=== PATIENT | male | born 1950 | race Caucasian/White ===

== ENCOUNTER 2017-12-31 12:14 | Observation (INO) | payer MEDICAID, OTHER ==
[2017-12-31] MEDS ORDERED: ASPIRIN EC 325 MG TAB PO ONE (12:16)
[2017-12-31] MEDS ORDERED: DIAZEPAM 5 MG TAB PO ONE (12:16)
[2017-12-31] MEDS ORDERED: FAMOTIDINE 20 MG TAB PO ONE (12:16)
[2017-12-31] MEDS ORDERED: NS 1,000 ML IV ONE (12:16)
[2017-12-31] MEDS ORDERED: diphenhydrAMINE 25 MG CAP PO ONE (12:16)
[2017-12-31] MEDS ORDERED: MIDAZOLAM 2 MG/2 ML VIAL ONE ×4 (12:30→14:16)
[2017-12-31] MEDS ORDERED: IOPAMIDOL (ISOVUE-370) 150 ML BTL IV ONE ×2 (12:30→14:15)
[2017-12-31] MEDS ORDERED: fentaNYL 100 MCG/2 ML INJ ONE ×3 (12:30→14:16)
[2017-12-31] MEDS ORDERED: LIDOCAINE 1% 300 MG/30 ML SDV ONE (12:30)
[2017-12-31] MEDS ORDERED: CLOPIDOGREL BISULFATE 75 MG TAB ONE (12:37)
[2017-12-31 12:58] LABS: PLATELET COUNT 189 10^3/uL (150-400)
[2017-12-31] MEDS ORDERED: CLOPIDOGREL BISULFATE 75 MG TAB PO ONE (13:00)
--- NOTE | 2017-12-31 13:00 | PDHPUP ---
History & Physical Update H&P update statement: This history and physical update is based on an assessment of the patient which was completed after admission or registration (within 24 hours), but prior to the surgery/procedure. H&P update: H&P reviewed & patient examined, no change in patient's condition since H&P completed
--- NOTE | 2017-12-31 13:00 | PDPROPOC ---
Sedation Plan of Care Sedation Plan of Care: mental status noted, patient educated of risks, benefits , alternatives, patient can tolerate sedation ASA Classification: ASA 2 Planned drugs: fentanyl, midazolam Mallampati Score: Class 2 Mallampati Reference Image: Patient passed 3-3-2 rule?: Yes
[2017-12-31 13:12] LABS: INR 0.93 (0.83-1.16); PROTIME(PATIENT) 12.7 SEC (12.0-15.0)
[2017-12-31] MEDS ORDERED: BIVALIRUDIN 250 MG/5 ML VIAL IV ONE (13:30)
[2017-12-31] MEDS ORDERED: ATROPINE SULFATE 1 MG/10 ML SYR ONE (13:48)
[2017-12-31] MEDS ORDERED: EPTIFIBATIDE 200 MG/100 ML BOTTLE IV ONE ×2 (14:00→14:01)
[2017-12-31] MEDS ORDERED: NITROGLYCERIN 1,500 MCG/15 ML VIAL MISC ONE (14:04)
[2017-12-31] MEDS ORDERED: HYDROCODONE/APAP 5/325 TAB PO PRN (14:44)
[2017-12-31] MEDS ORDERED: ATROPINE SULFATE 1 MG/10 ML SYR IVP PRN (14:44)
[2017-12-31] MEDS ORDERED: TEMAZEPAM 15 MG CAP PO PRN (14:44)
[2017-12-31] MEDS ORDERED: ONDANSETRON 4 MG/2 ML VIAL IVP PRN (14:44)
[2017-12-31] MEDS ORDERED: LORazepam 2 MG/ML INJ IVP PRN (14:44)
[2017-12-31] MEDS ORDERED: NITROGLYCERIN 0.4 MG BTL SL PRN (14:44)
[2017-12-31] MEDS ORDERED: NS 1,000 ML IV SCH (14:45)
--- NOTE | 2017-12-31 15:08 | CPEKG ---
Heart Rate: 69 RR Interval: 870 P-R Interval: 176 QRSD Interval: 90 QT Interval: 404 QTC Interval: 433 P [place]: 74 QRS [place]: 68 T Wave [place]: 28 EKG Severity - BORDERLINE ECG - EKG Impression: SINUS RHYTHM EKG Impression: PROBABLE LEFT ATRIAL ABNORMALITY Electronically Signed By: Rose Padilla 31-Dec-2017 19:00:49
--- NOTE | 2017-12-31 16:04 | CPIP ---
[f rep st] INVASIVE CARDIAC PROCEDURE DATE OF PROCEDURE: 12/31/2017 INDICATION FOR PROCEDURE: Unstable angina. PROCEDURE: 1. Nonselective right groin sheathogram. 2. Bilateral coronary angiography. 3. Left heart catheterization. 4. Saphenous vein angiography presumably to the diagonal artery. 5. Saphenous vein angiography to OM-1 artery. 6. Left internal mammary artery angiography to the LAD. 7. Saphenous vein angiography presumably to RCA. 8. Percutaneous coronary intervention of mid distal RCA, utilizing 2.5 x 24 mm Synergy drug-eluting stent for severe in-stent thrombosis/restenosis. 9. Right groin closure with 6-[place] Angio-Seal. Briefly, this 67-year-old male with history of coronary artery disease status post bypass surgery, mu ltiple stent placements a year ago at an outside hospital. The patient presented to [facility] today for treadmill stress testing. The patient had significant chest pain during treadmill stress testing. Given these findings, patient was consented for left heart catheterizati on given his suspicious and clinical findings. After informed consent was obtained, he was brought t o [facility]. Patient was administered 600 mg of Plavix p.o. A 6-Croatian sheath was pl aced in the right common femoral artery. A JL4 catheter was advanced to the left coronary artery. I mages of the left coronary artery revealed 50% ostial left main disease. The circumflex appeared to be 100% occluded after its ostial takeoff. The LAD had ostial 60% to 70% disease. The LAD was diffu sely diseased and had competitive flow from a graft. Distally at the apical LAD, there appeared to b e significant disease at the distal apical segment of the vessel. There was no evidence of any diago nal artery coming off the LAD. At this time, the JL4 catheter was removed. The JR4 catheter was adv anced to the right coronary artery. Images of the right coronary artery revealed normal ostial RCA, 30% to 40% disease proximally in the RCA, and the mid RCA was 100% occluded with significant thrombus burden noted. The JR4 catheter was then pulled back to the 1st graft, which was a widely patent sap henous vein graft to a marginal 1 artery. Distally, the marginal artery bifurcated into 2 separate v essels, which were healthy and free of disease. After the images were obtained, the catheter was pul led back into what was presumably a graft to a diagonal artery, which was 100% occluded. This was th en placed into the 2nd potential graft, which was a 100% occluded graft to presumably the right coron aria artery. The JR4 catheter was then pulled back and exchanged out for a HUSAIN catheter. Angiograph y of the HUSAIN showed a thin but patent HUSAIN anastomosing into the mid LAD. Of note, the distal apica l LAD had significant 90% disease; however, this was at the distal apical segment, and the vessel's p ost diseased area was small and trifurcating. the HUSAIN catheter was pulled back. A pigta il catheter was then advanced to the left ventricle. LVEDP 16 mmHg. Left ventriculogram in the ARVIZU projection showed EF of 55%, with no wall motion abnormalities. No pullback into the aorta. INTERVENTION REPORT: At this time, patient was started on Angiomax bolus and drip. Utilizing a JR4 6-Croatian guide catheter with side holes, the right coronary artery was selectively engaged. A choice PT wire with a FineCross catheter was utilized to cross the area of concern in the mid RCA and place d into the RPLS. Once this was performed, balloon dilatation commenced with a 2.5 x 15 mm compliant balloon throughout the entire length of the stented areas of the RCA, which was extensively stented p rior. Multiple sequential inflations of 12-14 atmospheres were created throughout the area. After t his was performed, angiographic images were obtained, which then showed restored flow into the vessel with what appeared to be significant thrombus/plaque ulceration at the level of the mid distal RCA. At this time, we decided to proceed with stenting of this area with a 2.5 x 24 Synergy, and it was d eployed at 16 atmospheres. After deployment, angiographic images were obtained, which showed improve d patency of the stented area with no evidence of dissection or perforation. There was what appeared to be at the distal edge of the newly placed stent, possible thrombus versus dissection. Thus, we d ecided to try to place a 2.5 x 12 Synergy stent distal to this. However, the stent would not eren e the newly stented area. We decided at this point in time to start the patient on double bolus Inte grilin drip and instead post dilated the entire stented regions of the stent with a 3.0 x 15 mm ballo on. This was placed into the distal RCA, and multiple sequential inflations of 12-14 atmospheres occ urred from the distal RCA back into the mid RCA. After this was performed, angiogram was taken, whic h showed much improved patency of the stented regions with much better expansion rates noted. At thi s time the wire was removed. The guide catheter was removed, and angiographic images were obtained, which showed excellent patency of not only the RPDA and RPLS but the entire stented regions as well. Of note, there were lesions noted now in the distal RPDA and RPLS, all of which were small vessels b y this point, and thus no intervention was warranted on these vessels as they were extremely small an d distal in the vessel. Guide catheter was removed over an 0.035 wire. Right groin was closed with 6-Croatian and Angio-Seal. The patient tolerated the procedure well and no complications. IMPRESSION: 1. Successful percutaneous coronary intervention of 100% occluded mid right coronary artery stents w ith single 2.5 x 24 mm Synergy drug-eluting stent and multiple percutaneous transluminal angioplasty inflations throughout the stented regions. 2. Severe [place] coronary artery disease, namely in the form of left main left anterior descending d isease and 100% occluded circumflex disease. 3. Patent saphenous vein graft to marginal 1 artery. 4. Occluded saphenous vein graft presumably to diagonal artery. 5. Occluded saphenous vein graft presumably to right circumflex artery. 6. Patent left internal mammillary artery to left anterior descending with extreme distal apical lef t anterior descending disease, not amenable to any percutaneous coronary intervention. 7. Normal ejection fraction. PLAN: The patient will remain on aspirin and Plavix and bedrest for 3 hours time. If clinically sta ble to can be discharged in 24 hours. /[id number]/MODL
[2017-12-31] MEDS ORDERED: CALCIUM CARBONATE 500 MG CHEWABLE TAB PO PRN (16:55)
[2018-01-01 04:31] LABS: PLATELET COUNT 159 10^3/uL (150-400)
--- NOTE | 2018-01-01 07:18 | PDCARPN ---
Cardiology Progress Note Chief Complaint: CP Assessment/Plan: Assessment: CP RCA occlusion with PCI to RCA Plan: 01/01/18 07:16 Doing well no CP labs stable d/c home today with effient (if pt can afford), ASA, pravastatin f/u in 1 week Subjective: feels good Reviewed/Discussed With: multidisciplinary team Time Spent with Patient: greater than 25 minutes Time Spent with Patient: Greater than 25 minutes spent on this patients care, greater than 50% of time spent counseling, educating, and coordinating care regarding the above mentioned plan. Objective: Vital Signs (8 Hrs) Temp Pulse Resp BP Pulse Ox 01/01/18 03:28 36.7 C 52 L 13 131/86 H 94 01/01/18 01:25 41 L Intake/Output (24 Hrs) 12/31/17 01/01/18 01/02/18 05:59 05:59 05:59 Intake Total 870 Output Total 200 Balance 670 Intake: Oral (ml) 370 IV Intake (ml) 500 Output: Urine (ml) 200 Urinal 200 Other: Weight 111.13 kg Number of Voids Toilet 2 Result Diagrams: 01/01/18 03:24 01/01/18 03:24 - Physical Exam Constitutional: healthy appearing Eyes: PERRL Ears, Nose, Mouth, Throat: moist mucous membranes Cardiovascular: regular rate and rhythm Peripheral Pulses: 1+: femoral (R), femoral (L) Respiratory: clear to auscultate bilat Gastrointestinal: normoactive bowel sounds Genitourinary: no suprapubic tenderness Skin: no rashes Musculoskeletal: no muscular tenderness Neurologic: AAOx3 ICD10 Worksheet Patient Problems: Problems Problem Status Onset CAD (coronary artery disease) Acute - ICD10 Problem Qualifiers (1) CAD (coronary artery disease) Qualifiers: Coronary Disease-Associated Artery/Lesion type: [place] artery [place] vs. transplanted heart: [place] heart Associated angina: with unstable angina Qualified Code(s): I25.110 - Atherosclerotic heart disease of [place] coronary artery with unstable angina pectoris
[2018-01-01 07:36] VITALS: BP 143/99
--- NOTE | 2018-01-01 07:42 | GDS ---
[f rep st] DISCHARGE SUMMARY DISCHARGE DIAGNOSIS: Coronary artery disease. HOSPITAL COURSE: Briefly this is a 67-year-old male who was admitted electively on 12/31/2017, for l eft heart catheterization secondary to abnormal stress test and worsening chest pain. The patient wa s found to have 100% occluded [place] right coronary artery which had been extensively stented apparen tly 1 year ago. Of note, the patient had a saphenous vein graft to the right coronary artery which w as noted to be chronically occluded as well as saphenous vein graft to diagonal artery which was occl uded. He did have a patent HUSAIN to LAD as well as a patent saphenous vein graft to marginal one pedro ry. The patient underwent successful PCI of his right coronary artery with 1 Synergy drug-eluting st ent with multiple balloon PTAs of his right coronary artery. The etiology of the right coronary pedro ry occlusion appears to be either a thrombotic occlusion secondary to plaque rupture versus underexpa nded stents. At this time, the patient is feeling much better and was discharged home on Plavix, asp irin. We were discussing sending the patient home on Effient rather than Plavix given his presentati on with occluded stents. However, the patient is on Medicaid. He cannot afford the Effient at this time. I will also try to initiate low-dose pravastatin given the patient's elevated cholesterol helga campbell. He will follow up in the office in approximately 1 weeks' time. /[id number]/MODL
[2018-01-01] MEDS ORDERED: LISINOPRIL 5 MG TAB PO SCH (09:00)
[2018-01-01] MEDS ORDERED: CLOPIDOGREL BISULFATE 75 MG TAB PO SCH ×2 (09:00)
[2018-01-01] MEDS ORDERED: ASPIRIN EC 81 MG TAB PO SCH (09:00)
[2018-01-01] MEDS ORDERED: PRASUGREL HCL 10 MG TAB PO ONE (09:00)
[2018-01-01] MEDS ORDERED: PRAVASTATIN SODIUM 20 MG TAB PO SCH (09:00)
[2018-01-01] MEDS ORDERED: ASPIRIN EC 325 MG TAB PO SCH (09:00)
--- NOTE | 2018-01-01 09:01 | CPEKG ---
Heart Rate: 69 RR Interval: 870 P-R Interval: 168 QRSD Interval: 90 QT Interval: 412 QTC Interval: 442 P [place]: 13 QRS [place]: 71 T Wave [place]: 35 EKG Severity - OTHERWISE NORMAL ECG - EKG Impression: SINUS ARRHYTHMIA, RATE 61-83 Electronically Signed By: Rose Padilla 01-Jan-2018 21:01:21
--- NOTE | 2018-01-01 09:30 | ASDISCHSUM ---
Discharge Information Plan Status:Home with No Needs Medically Cleared to Leave:01/01/2018 Discharge Date:01/01/2018 CM D/C Disposition:Home, Routine, Self-Care ADT D/C Disposition:Home, Routine, Self-Care Projected Discharge Date:01/01/2018 Transportation at D/C:Family Discharge Delay Reason: Follow-Up Date:01/01/2018 Discharge Slot: Final Diagnosis: Placement Information Patient Contact Information Contact Name:KAYLIN Relationship: Address:[address] City:[place] Alternate Phone: [facility]Zip Code:[place] [address] Email: Financial Information Financial Class:Medicare Primary Plan Desc:MEDICARE OUTPATIENT Primary Plan Number:[id number] Secondary Plan Desc: Secondary Plan Number: Assessment Information LACE LACE Length of stay for Answers: Less than 1 day current admission Comorbidities - select Answers: Coronary Artery Disease all that apply Other Notes: HTN; HLD; Pre-diab etic # of Emergency department Answers: 0 visits in the last 6 months Social determinants Answers: Mental health diagnosis (anxiety, depression, pers onality disorders, etc.) Score: 6 Date Signed: 01/01/2018 09:28 AM Electronically Signed By:Anny Irwin RN Intervention Information
[2018-01-02] MEDS ORDERED: PRASUGREL HCL 10 MG TAB PO SCH (09:00)
== END 2018-01-01 10:19 | disposition home or self-care (01) ==
LOC: FCATH 12:14 → F2W 14:48
PROVIDERS: ADMIT Internal Medicine Cardiovascular Disease; ATTEND Internal Medicine Cardiovascular Disease
DX: I25.720 Atherosclerosis of autologous artery coronary artery bypass graft(s) with unstable angina pectoris (principal); T82.855A Stenosis of coronary artery stent, initial encounter; Z95.5 Presence of coronary angioplasty implant and graft; E78.5 Hyperlipidemia, unspecified
CPT/HCPCS: 93005; 93459; C1725; C1760; C1769; C1874; C1887; C9600; G0378; J0583; J1327; J1644; J2250; J3010; Q9967; J0461

== ENCOUNTER 2018-01-03 14:49 | Inpatient (IN) | payer OTHER ==
--- NOTE | 2018-01-03 15:04 | EDPHY ---
H & P Stated Complaint: Mid back pain today;stent placed Time Seen by Provider: 01/03/18 15:03 - Personal History Current Tetanus Diphtheria and Acellular Pertussis (TDAP): Yes Tetanus Vaccine Date: 9 YR - Medical/Surgical History Hx Asthma: No Hx Chronic Respiratory Disease: No Hx Diabetes: No Hx Cardiac Disease: Yes Hx Renal Disease: No Hx Cirrhosis: No Hx Alcoholism: No Hx HIV/AIDS: No Hx Splenectomy or Spleen Trauma: No Other PMH: CABG x4 2007, HTN, HLD, pre DM, GERD, contsipation, anxiety, CAD w/ stents x5 gout - Social History Smoking Status: Never smoked Constitutional: Initial Vital Signs Temperature (C) 36.6 C 01/03/18 14:50 Heart Rate 84 01/03/18 14:50 Respiratory Rate 16 01/03/18 14:50 Blood Pressure 175/107 H 01/03/18 14:50 O2 Sat (%) 96 01/03/18 14:50 O2 Delivery Mode Room Air Allergies/Adverse Reactions: No Known Allergies Allergy (Unverified 01/03/18 15:18) Home Medications: Medication Instructions Recorded Clopidogrel Bisulfate [Plavix (*)] 75 mg PO DAILY 12/31/17 Lisinopril [Zestril 5 mg (*)] 5 mg PO DAILY 12/31/17 Aspirin EC [Aspirin EC 81 mg (*)] 81 mg PO DAILY tab 01/01/18 Nitroglycerin [Nitrostat 0.4 mg 0.4 mg SL Q5M PRN #1 btl 01/01/18 (*)] Allopurinol [Allopurinol 100 MG 100 mg PO DAILY 01/03/18 (*)] Medical Decision Making ED Course/Re-evaluation: CHIEF COMPLAINT: Recent stent placement, recurrent symptoms. HISTORY OF PRESENT ILLNESS: This patient is a 67 y/o male with significant cardiac history s/p stent placement on , three days ago, presenting with recurrent symptoms to his evaluation on . History of numerous stent placements and quadruple bypass. Today, he woke with mid-scapular pain which is exactly the same symptoms as prior to his procedure 3 days ago which resulted in CONTACT MANAGER and drug- eluting stent to the RCA.His pain is exacerbated with movement, slightly alleviated with rest. He spoke with his financial services intern, Dr. Stewart, who recommended he present to the ED for further evaluation. He denies fever, shortness of breath, nausea, vomiting, or other associated symptoms. REVIEW OF SYSTEMS: A 10 point review of systems was performed and is negative with the exception of the elements mentioned in the history of present illness. PHYSICAL EXAM: HR, BP, O2 Sat, RR. Temp noted General Appearance: Alert, well hydrated, appropriate, and non-toxic appearing. Head: Atraumatic without scalp tenderness or obvious injury Eyes: Pupils equal, round, reactive to light and accommodation, EOMI, no trauma , no injection. Ears: Clear bilaterally, no perforation, normal landmarks Nose: Atraumatic, no rhinorrhea, clear. Throat: There is no erythema or exudates, no lesions, normal tonsils, mucus membranes moist. Neck: Supple, 2+ carotid upstroke, nontender, no lymphadenopathy. Respiratory: No retractions, no distress, no wheezes, and no accessory muscle use. Lungs are clear to auscultation bilaterally. Cardiovascular: Regular rate and rhythm, no murmurs, rubs, or gallops. Bilateral carotid, radial, dorsalis pedis, and posterior tibial pulses intact. Good capillary refill all extremities. Gastrointestinal: Abdomen is soft, nontender, non-distended, no masses, no rebound, no guarding, no peritoneal signs. Musculoskeletal: Normal active ROM of all extremities, atraumatic. Neurological: Alert, appropriate, and interactive. The patient has normal DTRs and non-focal cranial nerves, motor, sensory, and cerebellar exam. Skin: No rashes, good turgor, no nodules on palpation. Past medical history: CABG x4 2007, Hypertension, Hyperlipidemia, Pre-Diabetes Mellitus, GERD, Constipation, Anxiety, CAD s/p stents x5, Gout. Past surgical history: CAD s/p CABG and multiple stent placements. Family history: Noncontributory. Social history: Lives in [place]. . Employed. Does not abuse tobacco, drugs, or alcohol. DIAGNOSTICS/PROCEDURES/CRITICAL CARE TIME: The 12 lead EKG was interpreted by myself. Sinus rhythm. See hard copy and/or "tracemaster" electronic copy for interpretation. Critical care time spent by me, Dr. Dunaway, exclusively with this patient was 30 minutes, exclusive of PA time and exclusive of procedures. The organ system at risk was cardiac and I consulted with cardiology and medicine, performed laboratory studies, reviewed EKGs, and reviewed past medical records including procedure notes to prevent worsening of the patients condition. DIFFERENTIAL DIAGNOSIS: The differential diagnosis for the patient's chest pain included but was not limited to myocardial ischemia, pulmonary embolus, chest wall pain, pleural inflammation, and pulmonary infectious causes. MEDICAL DECISION MAKIN67 y/o male with significant cardiac history s/p stent placement on presents with mid-scapular pain which is exactly the same symptoms as prior to his procedure 3 days ago. Plan for EKG, labs including CBC, chemistries, troponin, coag, BNP. 15:[address] depression in V4/V5. Of note, here were no acute EKG changes at the time of the patient's symptoms and subsequent catheterization on 12/31. 15:20 POC Troponin elevated at 0.23. 15:[address] White, financial services intern. Plan to consult with pulp mill supervisor application systems administrator. 15:[address] Linda, pulp mill supervisor. He performed the patient's stenting on 12/31/17. He does not want to take the patient back to the laboratory development technician at this time. Dr. Linda recommends admission and medical management. Plan to consult with hospitalist service. 15:[address] White. He is aware of the plan for medical management at this time. 15:[address] Jacobson, hospitalist. He accepts admission to [facility] for acute coronary syndrome. He will proceed with medical management including heparin drip, pain relief with nitro or other medications as needed. - Data Points Laboratory Results: Laboratory Results 01/03/18 15:08 01/03/18 15:08 01/03/18 01/03/18 01/03/18 15:08 15: 15:08 WBC 8.43 10^3/uL 10^3/uL (3.80-9.50) RBC 6.33 10^6/uL 10^6/uL (4.40-6.38) Hgb 19.5 g/dL H g/dL (13.7-17.5) Hct 57.0 % H % (40.0-51.0) MCV 90.0 fL fL (81.5-99.8) MCH 30.8 pg pg (27.9-34.1) MCHC 34.2 g/dL g/dL (32.4-36.7) RDW 13.7 % % (11.5-15.2) Plt Count 188 10^3/uL 10^3/uL (150-400) MPV 11.2 fL fL (8.7-11.7) Neut % (Auto) 60.4 % % (39.3-74.2) Lymph % (Auto) 28.1 % % (15.0-45.0) [place] % (Auto) 8.9 % % (4.5-13.0) Eos % (Auto) 1.7 % % (0.6-7.6) Baso % (Auto) 0.7 % % (0.3-1.7) Nucleat RBC Rel Count 0.0 % % (0.0-0.2) Absolute Neuts (auto) 5.09 10^3/uL 10^3/uL (1.70-6.50) Absolute Lymphs (auto) 2.37 10^3/uL 10^3/uL (1.00-3.00) Absolute Monos (auto) 0.75 10^3/uL 10^3/uL (0.30-0.80) Absolute Eos (auto) 0.14 10^3/uL 10^3/uL (0.03-0.40) Absolute Basos (auto) 0.06 10^3/uL 10^3/uL (0.02-0.10) Absolute Nucleated RBC 0.00 10^3/uL 10^3/uL (0-0.01) Immature Gran % 0.2 % % (0.0-1.1) Immature Gran # 0.02 10^3/uL 10^3/uL (0.00-0.10) PT 12.6 SEC SEC (12.0-15.0) INR 0.92 (0.83-1.16) APTT 26.3 SEC SEC (23.0-38.0) Sodium 143 mEq/L mEq/L (135-145) Potassium 4.3 mEq/L mEq/L (3.3-5.0) Chloride 105 mEq/L mEq/L (97-110) Carbon Dioxide 24 mEq/l mEq/l (22-31) Anion Gap 14 mEq/L mEq/L (8-16) BUN 16 mg/dL mg/dL (7-23) Creatinine 1.0 mg/dL mg/dL (0.7-1.3) Estimated GFR > 60 Glucose 102 mg/dL H mg/dL (70-100) Calcium 9.2 mg/dL mg/dL (8.5-10.4) POC Troponin I Troponin I NT-Pro-B Natriuret Pep 163 pg/mL H pg/mL (0-125) 01/03/18 01/03/18 15:08 15:07 WBC RBC Hgb Hct MCV MCH MCHC RDW Plt Count MPV Neut % (Auto) Lymph % (Auto) [place] % (Auto) Eos % (Auto) Baso % (Auto) Nucleat RBC Rel Count Absolute Neuts (auto) Absolute Lymphs (auto) Absolute Monos (auto) Absolute Eos (auto) Absolute Basos (auto) Absolute Nucleated RBC Immature Gran % Immature Gran # PT INR APTT Sodium Potassium Chloride Carbon Dioxide Anion Gap BUN Creatinine Estimated GFR Glucose Calcium POC Troponin I 0.23 ng/mL H ng/mL (0.00-0.08) Troponin I 0.261 ng/mL H ng/mL (0.000-0.034) NT-Pro-B Natriuret Pep Medications Given: Heparin Sodium (Porcine) (Heparin Injection) 0 unit IVP PRN PRN; Protocol PRN Reason: Boluses required by protcol Stop: 07/02/18 15:57 Last Admin: 01/03/18 17:02 Dose: 4,000 units Heparin Sodium (Porcine) (Heparin 50 Units/Ml (Premix)) 500 mls @ 0 mls/hr IV CONT SHEA; Per Protocol PRN Reason: Protocol Stop: 07/02/18 15:59 Last Admin: 01/03/18 17:03 Dose: 500 mls Metoprolol Tartrate (Lopressor) 12.5 mg PO BID [facility] Stop: 07/02/18 17:14 Last Admin: 01/03/18 18:14 Dose: 12.5 mg Pravastatin Sodium (Pravachol) 80 mg PO DAILY [facility] Stop: 07/02/18 16:59 Last Admin: 01/03/18 18:14 Dose: 80 mg Discontinued Medications Nitroglycerin/Dextrose (Nitroglycerin 200 Mcg/Ml (Premix)) 250 mls @ 0 mls/hr IV CONT ONE; Titrate PRN Reason: Protocol Stop: 01/03/18 15:36 Last Admin: 01/03/18 15:53 Dose: 250 mls Lorazepam (Ativan Injection) 1 mg IVP ONCE ONE Stop: 01/03/18 16:31 Last Admin: 01/03/18 16:36 Dose: 1 mg Point of Care Test Results: Chemistry 01/03/18 15:07 POC Troponin I 0.23 ng/mL H ng/mL (0.00-0.08) Departure - Departure Disposition: [facility] Inpatient Acute Clinical Impression: Acute coronary syndrome Condition: Fair Report Scribed for: Marco Antonio Dunaway Report Scribed by: Roma Ho Date of Report: 01/03/18 Time of Report: 15:33
--- NOTE | 2018-01-03 15:05 | CPEKG ---
Heart Rate: 82 RR Interval: 732 P-R Interval: 148 QRSD Interval: 94 QT Interval: 372 QTC Interval: 435 P [place]: 73 QRS [place]: 67 T Wave [place]: -54 EKG Severity - ABNORMAL ECG - EKG Impression: SINUS RHYTHM EKG Impression: LEFT ATRIAL ABNORMALITY EKG Impression: BORDERLINE T ABNORMALITIES, INFERIOR LEADS Electronically Signed By: Marco Antonio Dunaway 03-Jan-2018 18:46:50
[2018-01-03] MEDS ORDERED: NITROGLYCERIN/DEXTROSE 250 ML IV ONE (15:35)
[2018-01-03 15:47] LABS: PLATELET COUNT 188 10^3/uL (150-400)
[2018-01-03] MEDS ORDERED: ONDANSETRON DISINTEGRATING 4 MG TAB PO PRN (15:55)
[2018-01-03] MEDS ORDERED: ACETAMINOPHEN 325 MG TAB PO PRN (15:55)
[2018-01-03] MEDS ORDERED: ONDANSETRON 4 MG/2 ML VIAL IVP PRN (15:55)
[2018-01-03] MEDS ORDERED: HEPARIN 10,000 UNIT/10 ML MDV (1,000 UNIT/ML) IVP PRN (15:58)
[2018-01-03] MEDS ORDERED: NS 1,000 ML IV SCH (16:00)
[2018-01-03] MEDS ORDERED: HEPARIN/DEXTROSE 500 ML IV SCH (16:00)
[2018-01-03] MEDS ORDERED: NITROGLYCERIN/DEXTROSE 250 ML IV SCH (16:00)
[2018-01-03] MEDS ORDERED: HEPARIN/DEXTROSE 25,000 UNIT/500 ML BAG ONE (16:27)
[2018-01-03] MEDS ORDERED: HEPARIN 10,000 UNIT/10 ML MDV (1,000 UNIT/ML) ONE (16:27)
[2018-01-03] MEDS ORDERED: LORazepam 2 MG/ML INJ IVP ONE (16:30)
[2018-01-03 16:34] LABS: INR 0.92 (0.83-1.16); PROTIME(PATIENT) 12.6 SEC (12.0-15.0)
[2018-01-03] MEDS ORDERED: LORazepam 2 MG/ML INJ ONE (16:34)
--- NOTE | 2018-01-03 17:03 | PDGENHP ---
History and Physical - Chief Complaint Acute back pain - History of Present Illness Primary care provider: Martha Beltran at [facility] Primary composition molder: Dr. Terry Patricio HPI: 67-year-old male presents with acute back pain located in the mid scapular area characterized as a burning sensation, similar to the back pain he had been experiencing prior to his most recent catheterization which had resulted in DESIGNER WRITER and drug-eluting stent to the RCA. The patient reports that the pain began on the morning of presentation and has been persistent thereafter. It seems to be exacerbated with movement, slightly alleviated with rest as well as nitroglycerin drip initiated in the emergency department. The patient has not been taking any sublingual nitroglycerin at home. He has not received the statin ordered at his most recent discharge. He has been taking his aspirin and Plavix as prescribed. He otherwise denies any fevers chills or shortness of breath. He feels very anxious because the discomfort is very similar to what he has previously experienced and been identified as anginal. History Information - Allergies/Home Medication List Allergies/Adverse Reactions: No Known Allergies Allergy (Unverified 01/03/18 15:18) Home Medications: Clopidogrel Bisulfate [Plavix (*)] 75 mg PO DAILY 12/31/17 [Last Taken 01/03/18 AM] Lisinopril [Zestril 5 mg (*)] 5 mg PO DAILY 12/31/17 [Last Taken 01/03/18 AM] Allopurinol [Allopurinol 100 MG (*)] 100 mg PO DAILY 01/03/18 [Last Taken Unknown] I have personally reviewed and updated: family history, medical history, social history, surgical history - Past Medical History coronary artery disease (Multi vessel with previous CABG and cardiac stents, most recently DESIGNER WRITER as well as drug-eluting stent to a 100% occluded RCA), hypertension, hyperlipidemia Additional medical history: Anxiety. Gout. Erectile dysfunction - Surgical History Reports: coronary bypass surgery, coronary stent - Family History Additional family history: Mother with myocardial infarction at age 61, sibling with myocardial infarction at age 59, maternal grandfather with myocardial infarction at age 63 - Social History Smoking Status: Never smoked Alcohol Use: Occasionally (Never experienced alcohol withdrawal, did not consume alcohol last night) Drug Use: None Additional social history: Patient reports he is independent in his ADLs Review of Systems Review of Systems: ROS: 10pt was reviewed & negative except for what was stated in HPI & below Cardiac: Reports: chest pain (And back pain) Physical Exam Physical Exam: Temp Pulse Resp BP Pulse Ox 36.6 C 84 16 137/65 H 92 01/03/18 14:50 01/03/18 16:38 01/03/18 16:38 01/03/18 16:38 01/03/18 16:38 O2 (L/minute) 1 Constitutional: no apparent distress, appears nourished, obese, uncomfortable Eyes: PERRL, anicteric sclera, EOMI Ears, Nose, Mouth, Throat: moist mucous membranes, hearing normal, ears appear normal, no oral mucosal ulcers Cardiovascular: regular rate and rhythym, no murmur, rub, or gallop, No edema Respiratory: no respiratory distress, no rales or rhonchi, clear to auscultation Gastrointestinal: normoactive bowel sounds, soft, non-tender abdomen, no palpable masses Skin: warm, other (No ecchymoses on back), No abrasion, No rash Musculoskeletal: other (Full range of motion bilateral shoulders without any pain elicited, full range of motion of neck without any pain, no tenderness over the cervical thoracic or lumbar vertebral bodies, no tenderness over the anterior pectoralis muscles, no tenderness in the bilateral sub a.c.) Neurologic: AAOx3, sensation intact bilaterally, No weakness Psychiatric: not encephalopathic, thought process linear, anxious, No agitated Lab Data & Imaging Review 01/03/18 15:08 01/03/18 15:08 WBC 8.43 10^3/uL (3.80-9.50) 01/03/18 15:08 RBC 6.33 10^6/uL (4.40-6.38) 01/03/18 15:08 Hgb 19.5 g/dL (13.7-17.5) H 01/03/18 15:08 Hct 57.0 % (40.0-51.0) H 01/03/18 15:08 MCV 90.0 fL (81.5-99.8) 01/03/18 15:08 MCH 30.8 pg (27.9-34.1) 01/03/18 15:08 MCHC 34.2 g/dL (32.4-36.7) 01/03/18 15:08 RDW 13.7 % (11.5-15.2) 01/03/18 15:08 Plt Count 188 10^3/uL (150-400) 01/03/18 15:08 MPV 11.2 fL (8.7-11.7) 01/03/18 15:08 Neut % (Auto) 60.4 % (39.3-74.2) 01/03/18 15:08 Lymph % (Auto) 28.1 % (15.0-45.0) 01/03/18 15:08 [place] % (Auto) 8.9 % (4.5-13.0) 01/03/18 15:08 Eos % (Auto) 1.7 % (0.6-7.6) 01/03/18 15:08 Baso % (Auto) 0.7 % (0.3-1.7) 01/03/18 15:08 Nucleat RBC Rel Count 0.0 % (0.0-0.2) 01/03/18 15:08 Absolute Neuts (auto) 5.09 10^3/uL (1.70-6.50) 01/03/18 15:08 Absolute Lymphs (auto) 2.37 10^3/uL (1.00-3.00) 01/03/18 15:08 Absolute Monos (auto) 0.75 10^3/uL (0.30-0.80) 01/03/18 15:08 Absolute Eos (auto) 0.14 10^3/uL (0.03-0.40) 01/03/18 15:08 Absolute Basos (auto) 0.06 10^3/uL (0.02-0.10) 01/03/18 15:08 Absolute Nucleated RBC 0.00 10^3/uL (0-0.01) 01/03/18 15:08 Immature Gran % 0.2 % (0.0-1.1) 01/03/18 15:08 Immature Gran # 0.02 10^3/uL (0.00-0.10) 01/03/18 15:08 PT 12.6 SEC (12.0-15.0) 01/03/18 15:08 INR 0.92 (0.83-1.16) 01/03/18 15:08 APTT 114.6 SEC (23.0-38.0) H 01/03/18 15:08 Sodium 143 mEq/L (135-145) 01/03/18 15:08 Potassium 4.3 mEq/L (3.3-5.0) 01/03/18 15:08 Chloride 105 mEq/L (97-110) 01/03/18 15:08 Carbon Dioxide 24 mEq/l (22-31) 01/03/18 15:08 Anion Gap 14 mEq/L (8-16) 01/03/18 15:08 BUN 16 mg/dL (7-23) 01/03/18 15:08 Creatinine 1.0 mg/dL (0.7-1.3) 01/03/18 15:08 Estimated GFR > 60 01/03/18 15:08 Glucose 102 mg/dL (70-100) H 01/03/18 15:08 Calcium 9.2 mg/dL (8.5-10.4) 01/03/18 15:08 POC Troponin I 0.23 ng/mL (0.00-0.08) H 01/03/18 15:07 Troponin I 0.261 ng/mL (0.000-0.034) H 01/03/18 15:08 NT-Pro-B Natriuret Pep 163 pg/mL (0-125) H 01/03/18 15:08 Visualized and Interpreted EKG results: Yes EKG Interpretation: Positive for: other (Normal sinus mechanism, less than [address] depressions in leads V4 and V5, mild ST elevations when EKG is flipped) Assessment & Plan Assessment: 67-year-old male presents with acute back/chest pain concerning for acute coronary syndrome Plan: 1. Chest/back pain. Acute, concerning for acute coronary syndrome given that his troponin level 0.2, his symptoms are insidiously similar to his previous anginal equivalent, and his EKG demonstrates ST depressions laterally which do appear to be ST elevations when his EKG is flipped, and these are visible changes from his EKG on 01/01/2018 -discussed with Dr. Marco Antonio Dunaway, we both agree that the risk of this being acute coronary syndrome is very present, and we would be remiss not to treat as such with a nitroglycerin drip and heparinization -Dr. Dunaway has discussed with both doctors Cindy and Maddi, and they do not recommend cardiac catheterization at this time, they recommend medical management, they will consult the patient in the a.m. -I will monitor on telemetry, cycle his cardiac enzymes, and if his troponin level is rising or his symptoms become unrelenting, I will reconsult with these providers for catheterization overnight -will provide him with statin which was not filled yet from his most recent hospitalization -continue aspirin, Plavix, beta-radha -titrate nitro drip to chest discomfort, it IV morphine for breakthrough 2. Hypertension. Continue ASHLEY-inhibitor, beta-radha added 3. Anxiety. Although the patient may have an anxiety component given his history of very real medical disease, I do not get the sense that the patient's current presentation is completely attributable to anxiety Diet. Cardiac, NPO in a.m. For possible catheterization tomorrow Prophylaxis. High risk patient, heparin drip Code. Full Disposition. Anticipated discharge uncertain this time, anticipated length stay is greater than 2 midnights for reasonable medical necessity including suspected acute coronary syndrome in a high risk patient with known coronary artery disease, recent cardiac stenting, previous CABG, elevated troponin level. 35 min of critical care time spent with this patient, at bedside, coordinating care with Dr. Dunaway, specifically addressing what we believe to be acute coronary syndrome requiring heparin drip, nitro drip, step-down unit level of care, with the patient being high risk for worsening morbidity and/or mortality and being critically ill.
[2018-01-03] MEDS ORDERED: LORazepam 0.5 MG TAB PO PRN (18:00)
[2018-01-03] MEDS: PRAVASTATIN SODIUM 40 MG TAB PO SCH (18:14)
[2018-01-03] MEDS: METOPROLOL TARTRATE 25 MG TAB PO SCH ×2 (18:14→20:36)
[2018-01-03 23:35] LABS: INR 1.03 (0.83-1.16); PROTIME(PATIENT) 13.7 SEC (12.0-15.0)
[2018-01-04 04:48] LABS: PLATELET COUNT 156 10^3/uL (150-400)
[2018-01-04] MEDS ORDERED: DIAZEPAM 5 MG TAB PO ONE (06:43)
[2018-01-04] MEDS ORDERED: diphenhydrAMINE 25 MG CAP PO ONE ×2 (06:43→08:39)
[2018-01-04] MEDS ORDERED: TEMAZEPAM 15 MG CAP PO PRN (06:43)
[2018-01-04] MEDS ORDERED: FAMOTIDINE 20 MG TAB PO ONE (06:43)
--- NOTE | 2018-01-04 07:18 | GCON ---
[f rep st] CONSULTATION CARDIOLOGY CONSULT DATE OF CONSULTATION: 01/04/2018 CHIEF COMPLAINT: Chest pain, back pain. HISTORY OF PRESENT ILLNESS: This is a 67-year-old male who was recently discharged from [facility], who was found to have 100% occluded [place] right coronary artery secondary to stent thr ombosis. The patient underwent PTCA and stent placement to his mid RCA with resolution of flow into the RCA. Of note, the patient had occluded saphenous vein graft to RCA as well as saphenous vein gra ft to diagonal artery. He did have a patent HUSAIN to LAD and a patent saphenous vein graft to a gerry nal 1 artery. Apparently yesterday morning, patient woke up and had sudden onset of back pain. He d ecided to come to the emergency room for further evaluation where he was found to have slight a tropo brandon elevation of 0.2. His ECG did not show any significant changes. There may have been some subtle lateral depression, however, his blood pressure was 180/100. With his blood pressure being controll ed, the STs have normalized. Current troponin is 0.3. His chest pain is resolved at this time on ex amination. He is on nitroglycerin currently but denies any shortness of breath. Heart rate is 64 cu rrently and saturating 95% on 2 L nasal cannula. PAST HISTORY: Coronary artery disease, hypertension. HOME MEDICATIONS: Please see patient's home attached list. REVIEW OF SYSTEMS: Ten-point review of systems is negative other than what is mentioned in the HPI. SOCIAL HISTORY: . No smoking. Occasional alcohol use. FAMILY HISTORY: Significant for coronary artery disease on the maternal side. PHYSICAL EXAM: VITAL SIGNS: Patient is afebrile, 98.6. Blood pressure is currently 100/60 with a h eart rate of 70, respirations 12, satting 94% on 2 L nasal cannula. HEENT: Pupils equal, round, linda ctive to light and accommodation. Extraocular muscles are intact. There is no thyromegaly. CARDIOV ASCULAR: Regular rate and rhythm. S1, S2. LUNGS: Clear to auscultation bilaterally. ABDOMEN: So ft, nontender. No guarding. EXTREMITIES: No clubbing, no cyanosis, no edema. NEUROLOGIC: Patient is alert and oriented x3. SKIN: Warm. PSYCHIATRY: No psychiatric issues noted. LABORATORY VALUES: Currently show a white cell 9.5, hemoglobin 16.5, platelet count 156. Creatinine 1.0. Troponin 0.3. ASSESSMENT/PLAN: [id number] myocardial infarction. At this time, the patient is resting quiet ly. His ECG shows no new dynamic changes, although his troponin is elevated at 0.3. Clearly, this c ould be secondary to potential coronary obstruction versus uncontrolled hypertension. We will contin ue with aggressive medical therapy and we will plan for a left heart catheterization later today. Th e patient will remain n.p.o. at this time. I have explained the risks and possible complications of performing a repeat heart catheterization, including stroke, bleeding, and possible , and the faustino caban is willing to proceed. /[id number]/MODL
--- NOTE | 2018-01-04 08:03 | PDPROPOC ---
Sedation Plan of Care Sedation Plan of Care: vital signs stable, mental status noted, patient educated of risks, benefits, alternatives, patient can tolerate sedation ASA Classification: ASA 2 Planned drugs: fentanyl, midazolam Mallampati Score: Class 2 Mallampati Reference Image: Patient passed 3-3-2 rule?: Yes
[2018-01-04] MEDS ORDERED: LIDOCAINE 1% 300 MG/30 ML SDV ONE (08:11)
[2018-01-04] MEDS ORDERED: fentaNYL 100 MCG/2 ML INJ ONE (08:11)
[2018-01-04] MEDS ORDERED: VERAPAMIL 5 MG/2 ML VIAL ONE (08:12)
[2018-01-04] MEDS ORDERED: HEPARIN 10,000 UNIT/10 ML MDV (1,000 UNIT/ML) ONE (08:12)
[2018-01-04] MEDS ORDERED: IOPAMIDOL (ISOVUE-370) 150 ML BTL IV ONE (08:12)
[2018-01-04] MEDS ORDERED: MIDAZOLAM 2 MG/2 ML VIAL ONE (08:12)
[2018-01-04] MEDS ORDERED: ASPIRIN EC 325 MG TAB PO ONE (08:40)
[2018-01-04] MEDS ORDERED: CLOPIDOGREL BISULFATE 75 MG TAB PO SCH (09:00)
[2018-01-04] MEDS ORDERED: LISINOPRIL 5 MG TAB PO SCH (09:00)
[2018-01-04] MEDS ORDERED: ASPIRIN EC 81 MG TAB PO SCH (09:00)
--- NOTE | 2018-01-04 09:27 | PDDXCAT ---
Diagnostic Cath Note - . Date: 01/04/18 Tunnel Heading Supervisor: Sheng Indication: CCC Class III and IV angina on medical treatment - Procedure Access: left wrist Procedure: left heart catheterization, coronary angiography, left ventriculogram - Materials Left Heart Cath size: 5F Left Heart Cath materials: pigtail, Josef's R - Findings-Left Heart Catheterization RCA: Widely patent new stents with SRINI grade 3 flow EDP: 13 mm of mercury LVEF: 65% Wall motion: Normal Complications: None Estimated blood loss: <50ml Closure method: TR Band Assessment: Widely patent site of recent stenting. Preserved LV systolic function with normal filling pressures. Recent injection of the mammary artery showed widely patent graft to the LAD with apical occlusion. Recent injection of the saphenous vein graft to the obtuse marginal widely patent. Left ventricular angiography today shows continued patency of the vein graft to the lateral wall. Plan: Aggressive medical therapy with secondary prevention. Intervention: None Patient Problems: Problems Problem Status Onset chronic disease mgmt/transitional care Acute CAD (coronary artery disease) Acute Acute coronary syndrome Acute
[2018-01-04] MEDS: PRAVASTATIN SODIUM 40 MG TAB PO SCH (11:11)
[2018-01-04] MEDS: METOPROLOL TARTRATE 25 MG TAB PO SCH (11:12)
[2018-01-04] MEDS: ALLOPURINOL 100 MG TAB PO SCH ×2 (11:12→11:14)
[2018-01-04 11:42] VITALS: BP 109/76
--- NOTE | 2018-01-04 13:30 | GDS ---
[f rep st] DISCHARGE SUMMARY DISCHARGE DIAGNOSES: 1. Back pain. 2. Coronary disease with history of stent to RCA. 3. Hypertension. 4. Hyperlipidemia. 5. Anxiety. 6. Gout. 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 He had pain the morning of presentation and it has been constant since. It is exacerbated with movement, slightly alleviated with rest as well as nitroglycerin. He has not been taking any sublingual nitroglycerin at home. HOSPITAL COURSE BY PROBLEM: 1. Atypical chest/back pain: Concern for anginal equivalent. Underwent cardiac catheterization. The RCA was widely patent with new stents. Preserved LV systolic function. LAD graft patent. Recommend aggressive medical therapy. Continue aspirin, Plavix, lisinopril, metoprolol. New rx for BB, statin 2. Hypertension. Medications as above. 3. Hyperlipidemia, statin. 4. Anxiety: asking me Ativan. I explained this is not a good long-term medication and is addictive. He should follow up with his PCP for SSRI for better control. DISPOSITION: Patient is stable for discharge. PHYSICAL EXAMINATION: VITAL SIGNS: Temperature 36.7, blood pressure 109/76, heart rate is in the 70s, respirations 16, 95% on room air. GENERAL: Well appearing, sitting up, mildly anxious. HEENT: PERRLA. Moist mucous membranes. CVS: Regular rate and rhythm. LUNGS: Clear. ABDOMEN: Soft, nontender, nondistended. Positive bowel sounds. : No Meza. MUSCULOSKELETAL: Left radial access is banded. NEURO: 2 through 12 intact. PSYCH: Alert and oriented x3, anxious. FOLLOWUP: 1. Dr. Stewart with Cardiology. 2. His PCP to discuss anxiety. Time spent on discharge greater 30 minutes coordinating discharge medications and coordinating followup. /[id number]/MODL MTDD
== END 2018-01-04 14:15 | disposition home or self-care (01) | DRG 287 ==
LOC: F2N 17:13
PROVIDERS: ADMIT Internal Medicine; ATTEND Internal Medicine
PROC: B2111ZZ Fluoroscopy of Multiple Coronary Arteries using Low Osmolar Contrast (ICD-10-PCS; principal; 2018-01-04)
PROC: B2151ZZ Fluoroscopy of Left Heart using Low Osmolar Contrast (ICD-10-PCS; principal; 2018-01-04)
PROC: B2131ZZ Fluoroscopy of Multiple Coronary Artery Bypass Grafts using Low Osmolar Contrast (ICD-10-PCS; principal; 2018-01-04)
PROC: 4A023N7 Measurement of Cardiac Sampling and Pressure, Left Heart, Percutaneous Approach (ICD-10-PCS; principal; 2018-01-04)
DX: R07.89 Other chest pain (principal); M54.9 Dorsalgia, unspecified; I25.10 Atherosclerotic heart disease of native coronary artery without angina pectoris; I10 Essential (primary) hypertension; E78.5 Hyperlipidemia, unspecified; F41.9 Anxiety disorder, unspecified; M10.9 Gout, unspecified; Z95.1 Presence of aortocoronary bypass graft; Z95.5 Presence of coronary angioplasty implant and graft
CPT/HCPCS: 84484-PO; 85520-90; 96374; C1725; C1760; C1769; C1874; C1887; C9600; G0378; J0461; J0583; J1200; J1327; J1644; J2060; J2250; J3010; Q9967